=== PATIENT | female | born 1975 | race Hispanic/Latino ===

== ENCOUNTER 2016-11-26 09:42 | Day surgery (SDC) | payer MEDICAID ==
[2016-11-25 09:38] VITALS: BMI 33.2
[2016-11-26] MEDS ORDERED: Propofol 10 mg/ml Inj (20 ML) ONE ×2 (11:51→12:25)
[2016-11-26 12:51] VITALS: TEMP 98
[2016-11-26] MEDS ORDERED: Sodium Chloride 0.9% 1,000 ML IV SCH (13:00)
[2016-11-26 15:13] VITALS: BP 107/76; PULSE 77; RESP 18; O2SAT 97
== END 2016-11-26 14:05 | disposition home or self-care (01) ==
LOC: ENDO 09:42
PROVIDERS: ATTEND Internal Medicine
DX: K29.50 Unspecified chronic gastritis without bleeding (principal); B96.81 Helicobacter pylori [H. pylori] as the cause of diseases classified elsewhere; K63.5 Polyp of colon; K64.8 Other hemorrhoids
CPT/HCPCS: 43239; 45380; 45381; 45385; 84703; 88305; 88342; J2001; J2704; J3010; J7040